=== PATIENT | male | born 1970 | race Caucasian/White ===

== ENCOUNTER 2023-04-08 10:49 | Outpatient (OUT) | payer MEDICARE, SELFPAY ==
--- NOTE | 2023-04-08 10:57 | US_ITS ---
[place] [id number] Patient Name: CLAUDINE WHITLOCK MRN: [id number] date: 1970 Sex: M Assigned Patient Location: Current Patient Location: US Accession/Order Number: [id number] Exam Date: 04/08/2023 11:00 Report Date: 04/08/2023 12:47 At the request of: ANETTE DEVLIN Procedure: US carotid duplex BI EXAMINATION: US carotid duplex BI HISTORY: paresthesia of skin R20.2 COMPARISON: No relevant comparison available. TECHNIQUE: Duplex Doppler ultrasound analysis of carotid and vertebral arteries. . Bilateral carotid arterial duplex examination was performed using B-mode, color flow and spectral analysis. Carotid stenosis is reported according to validated velocity parameters, similar to NASCET criteria. FINDINGS: RIGHT CAROTID ARTERY No significant atherosclerotic plaque. Tortuous ICA Subclavian: PSV: 203.3 cm/s cm/s EDV: 0.0 cm/s cm/s CCA: Prox: PSV: 97.3 cm/s cm/s EDV: 18.3 cm/s cm/s Mid: PSV: 77.4 cm/s cm/s EDV: 17.6 cm/s cm/s Distal: PSV: 70.9 cm/s cm/s EDV: 19.2 cm/s cm/s BULB: PSV: 38.4 cm/s cm/s EDV: 10.9 cm/s cm/s ICA: Prox: PSV: 65.8 cm/s cm/s EDV: 17.5 cm/s cm/s Mid: PSV: 80.1 cm/s cm/s EDV: 24.5 cm/s cm/s Distal: PSV: 102.3 cm/s cm/s EDV: 29.4 cm/s cm/s ECA: PSV: 122.3 cm/s cm/s EDV: 10.9 cm/s cm/s VERTEBRAL: PSV: 125.0 cm/s cm/s EDV: 30.3 cm/s cm/s, antegrade ICA/CCA ratio: PSV: 1.4 EDV: 1.5 LEFT CAROTID ARTERY no significant atherosclerotic plaque Subclavian: PSV: 168.7 cm/s cm/s EDV: 16.8 cm/s CCA: Prox: PSV: 104.9 cm/s cm/s EDV: 14.2 cm/s Mid: PSV: 67.4 cm/s cm/s EDV: 10.3 cm/s Distal: PSV: 81.2 cm/s cm/s EDV: 20.1 cm/s BULB: PSV: 61.5 cm/s cm/s EDV: 16.2 cm/s ICA: Prox: PSV: 81.2 cm/s cm/s EDV: 24.0 cm/s Mid: PSV: 134.4 cm/s cm/s EDV: 35.9 cm/s Distal: PSV: 67.4 cm/s cm/s EDV: 20.1 cm/s ECA: PSV: 120.0 cm/s cm/s EDV: 11.6 cm/s VERTEBRAL: PSV: 55.5 cm/s cm/s EDV: 18.0 cm/s , antegrade ICA/CCA ratio: PSV: 1.7 EDV: 1.8 US/US carotid duplex BI IMPRESSION: 0-49% flow stenosis bilateral internal carotid arteries Spectral Doppler US Thresholds (Reference: Tyrell EG, et al. Radiology 2000; 214:247-252) Stenosis (%) PSV (cm/sec) VICA/VCCA 0-49 <150 <2.5 50-69 150-225 2.5-4.0 >70 >225 >4.0 Electronically authenticated by: ELIZA CORONA Date: 04/08/2023 12:47
== END 2023-04-08 10:50 | disposition home or self-care (01) ==
LOC: US 10:49
PROVIDERS: PCP Family Medicine; Visit Provider Family Medicine
DX: R20.2 Paresthesia of skin (principal)
CPT/HCPCS: 93880

== ENCOUNTER 2024-02-15 09:27 | Outpatient (OUT) | payer MEDICARE, SELFPAY ==
[2024-02-15 09:52] LABS: Basophils Percent Auto 0.3 % (0.2-2.0); Eosinophils Absolute Auto 0.3 10^3/uL (0.0-0.7); Eosinophils Percent Auto 2.6 % (0.9-7.0); Hematocrit 41.1 % (42.0-54.0); Hemoglobin 13.3 g/dL (14.0-18.0); Immature Granulocytes Abs Auto 0.03 10^3/uL (0.00-0.03); Immature Granulocytes Pct Auto 0.3 % (0.0-0.5); Lymphocytes Absolute Auto 1.5 10^3/uL (1.2-3.8); Lymphocytes Percent Auto 15.7 % (20.5-60.0); Mean Corpuscular HGB Conc 32.4 g/dL (29.9-35.2); Mean Corpuscular Hemoglobin 34.4 pg (25.9-34.0); Mean Platelet Volume 8.7 fL (9.5-13.5); Monocytes Absolute Auto 0.7 10^3/uL (0.3-0.8); Monocytes Percent Auto 6.8 % (1.7-12.0); Neutrophils Absolute Auto 7.1 10^3/uL (1.4-6.5); Neutrophils Percent Auto 74.3 % (43.0-75.0); Platelet Count 288 10^3/uL (150-450); Red Blood Count 3.87 10^6/uL (4.70-6.10); Red Cell Distribution Width 14.2 % (11.0-15.0); White Blood Count 9.6 10^3/uL (4.0-11.0)
[2024-02-15 10:18] LABS: Mean Corpuscular Volume 106.2 fL (80.0-94.0)
[2024-02-15 11:06] LABS: Alanine Aminotransferase 18 U/L (16-63); Albumin Globulin Ratio 0.8; Alkaline Phosphatase 82 U/L (46-116); Anion Gap 12.7; Aspartate Amino Transferase 12 U/L (15-37); Bilirubin Total 0.5 mg/dL (0.2-1.0); Calcium 8.7 mg/dL (8.5-10.1); Carbon Dioxide 29.9 mmol/L (21.0-32.0); Chloride 101 mmol/L (98-107); Estimated GFR (African America >60 (>=60 mL/min/1.73m^2); Estimated GFR (Non-African Ame >60 (>=60 mL/min/1.73m^2); Glucose 133 mg/dL (74-106); Potassium 4.6 mmol/L (3.5-5.1); Sodium 139 mmol/L (136-145)
[2024-02-15 11:07] LABS: Chol HDL Ratio 3.4; Cholesterol 142 mg/dL (<=200); HDL Cholesterol 42 mg/dL (40-60); Thyroid Stimulating Hormone 7.184 uIU/mL (0.358-3.740); Triglycerides 103 mg/dL (<=150); VLDL CHOLESTEROL 20.6 mg/dL
[2024-02-15 11:36] LABS: Estimated Average Glucose 163 mg/dL; Glycohemoglobin A1C 7.3 % (4.5-6.2)
[2024-02-15 11:43] LABS: Microalbumin Urine Random 15.8 mg/dL (<=30.0)
[2024-02-15 12:04] LABS: Prostate Specific Antigen Scrn 0.48 ng/mL (<=4.00)
== END 2024-02-15 09:28 | disposition home or self-care (01) ==
LOC: LAB 09:29
PROVIDERS: PCP Family Medicine; Visit Provider Family Medicine
DX: E11.65 Type 2 diabetes mellitus with hyperglycemia (principal); I10 Essential (primary) hypertension; Z12.5 Encounter for screening for malignant neoplasm of prostate
CPT/HCPCS: 36415; 80053; 80061; 82043; 83036; 84443; 85025; G0103